=== PATIENT | female | born 1985 | race Caucasian/White ===

== ENCOUNTER 2022-10-25 12:36 | Emergency (ER) | payer MEDICAID ==
[2022-10-25 12:45] VITALS: BP 119/80
--- NOTE | 2022-10-25 13:09 | ED Physician Documentation ---
PD HPI UPPER EXT INJURY - Stated complaint Stated Complaint: RT ELBOW PX - Chief complaint Chief Complaint: Ext Problem - History obtained from History obtained from: Patient - History of Present Illness Location: Right, Elbow - Additonal information Additional information: 37-year-old female presents with right lateral elbow pain over the course of last week or so. She denies any acute injury. Pain is very focal left lateral epicondyle. No erythema or swelling. It is worse when she attempts to lift things which she does frequently at her job at [employer]. She has been lifting bags of mulch frequently over the course of the last week which is exacerbated her pain. She has not attempted any treatment including compression, ice, NSAIDs. PD PAST MEDICAL HISTORY - Present Medications Home Medications: Ambulatory Orders Medication Instructions Recorded Confirmed No Known Home Medications 10/25/22 10/25/22 - Allergies Allergies/Adverse Reactions: Allergies Allergy/AdvReac Type Severity Reaction Status Date / Time No Known Drug Allergies Allergy Verified 10/25/22 12:42 PD ED PE NORMAL - Vitals Vital signs reviewed: Yes - General General: Alert and oriented X 3, No acute distress, Well developed/nourished - Extremities Extremities: No deformity, Normal ROM s pain, Other (There is tenderness of the right lateral epicondyle, no erythema or swelling. No other extremity injuries. She has Normal range of motion without pain except against resistance.) Results - Vitals Vitals: Vital Signs - 24 hr 10/25/22 12:40 Temperature 36.8 C Heart Rate 78 Respiratory 16 Rate Blood Pressure 119/80 O2 Saturation 97 Oxygen O2 Source Room air PD Medical Decision Making - ED course Complexity details: considered differential, d/w patient ED course: 37-year-old female presented with right lateral elbow pain as described in HPI. This is likely related to repetitive motion lifting which she has been doing her job recently. She very likely has a lateral epicondylitis. Recommended supportive measures for the patient including cool compress, light compression, and ibuprofen. Encouraged the patient to rest if possible for the next week or so to allow the elbow to heal though advised that this can recur particularly with repetitive motion activity and if possible she could do alternative work at her workplace. Pt will fup w/ her PCP as needed. . Departure - Departure Disposition: 01 Home, Self Care Clinical Impression: Lateral epicondylitis of elbow Qualifiers: Laterality: right Qualified Code(s): M77.11 - Lateral epicondylitis, right elbow Condition: Good Instructions: ED Epicondylitis Lateral Elbow Comments: Your symptoms are consistent with an epicondylitis of the elbow. This is a common overuse injury when a person is frequently using the elbow for lifting or repetitive motion such as tennis, golf, hammering in construction or in your case, frequently lifting heavy bags and equipment. The treatment is largely supportive, I recommend light compression, taking ibuprofen for anti- inflammatory and icing the area frequently. It would be good if you could take light duty or refrain from lifting for the next 1 to 2 weeks to allow the area to rest. Forms: Activity restrictions
== END 2022-10-25 13:15 | disposition home or self-care (01) ==
LOC: ED 12:36
DX: M77.11 Lateral epicondylitis, right elbow (principal)
CPT/HCPCS: 99281; 99283

== ENCOUNTER 2023-04-26 11:29 | Emergency (ER) | payer OTHER, MEDICAID ==
[2023-04-26 11:55] VITALS: BP 120/44; O2SAT 97
[2023-04-26 12:25] LABS: HCG,QUALITATIVE BLOOD NEGATIVE
--- NOTE | 2023-04-26 13:13 | ED Physician Documentation ---
PD HPI LOWER EXT INJURY - Stated complaint Stated Complaint: LFT KNEE PX - Chief complaint Chief Complaint: Ext Problem - History obtained from History obtained from: Patient - History of Present Illness PD HPI LOW EXT INJURY LOCATION: Left, Knee Pain level max: 6 Pain level now: 5 Improved by: Rest Worsened by: Moving, Palpating Associated symptoms: Swelling. No: Weakness, Numbness, Tingling Contributing factors: No: Anticoagulated - Additional information Additional information: 38 year old female with pain to the L knee, medial aspect. worse since starting a new job at [employer]. Worse with movement, better with rest. She states that there is a slight possibility she could be . She does not believe that she has however. She states that she tried using a brace but is still having pain in the knee. She states that she is having some swelling. No skin changes. No numbness or tingling. No calf swelling. Patient does not recall any specific trauma. Review of Systems Constitutional: denies: Fever, Chills Nose: denies: Rhinorrhea / runny nose, Congestion GI: denies: Nausea, Vomiting, Diarrhea Skin: denies: Rash Musculoskeletal: denies: Neck pain, Back pain Neurologic: denies: Headache PD PAST MEDICAL HISTORY - Past Medical History Past Medical History: Yes Other Past Medical History: ovarina issues. - Past Surgical History Past Surgical History: No - Present Medications Home Medications: Ambulatory Orders Medication Instructions Recorded Confirmed No Known Home Medications 10/25/22 10/25/22 - Allergies Allergies/Adverse Reactions: Allergies Allergy/AdvReac Type Severity Reaction Status Date / Time No Known Drug Allergies Allergy Verified 04/26/23 11:45 - Social History Does the pt smoke?: No Smoking Status: Current some day smoker Does the pt drink ETOH?: Yes ETOH Use: Wine, Beer Does the pt have substance abuse?: No - Immunizations Immunizations are current?: Yes - POLST Patient has POLST: No PD ED PE NORMAL - Vitals Vital signs reviewed: Yes - General General: Alert and oriented X 3, No acute distress - HEENT HEENT: PERRL, Moist mucous membranes - Neck Neck: Supple, no meningeal sign - Derm Derm: Warm and dry - Extremities Extremities: No deformity, Normal ROM s pain, No calf tenderness / cord, Other (Left knee - ACL, MCL, PCL, LCL are intact. Mild tenderness along the medial as pect of the joint line and some pain with valgus stress on the knee.) - Neuro Neuro: Alert and oriented X 3 - Psych Psych: Normal mood, Normal affect Results - Vitals Vitals: Vital Signs - 24 hr 04/26/23 11:40 Temperature 36.6 C Heart Rate 86 Respiratory 16 Rate Blood Pressure 120/44 L O2 Saturation 97 Oxygen O2 Source Room air - Labs Labs: Laboratory Tests 04/26/23 04/26/23 11:55 13:08 Serum HCG, Qual NEGATIVE Urine HCG, Qual NEGATIVE - Rads (name of study) Left knee x-ray Relevant Findings:: Final report received, See rad report PD Medical Decision Making - ED course Complexity details: reviewed results, re-evaluated patient, considered differential, d/w patient ED course: No acute findings on the x-ray. Her exam is consistent with a knee strain. Placed in articulating knee brace for comfort. Ambulating without a limp. She can use Motrin or Tylenol as needed for pain at home. L&I paperwork completed. Recommend she follow-up with her PCP for further care. No evidence of joint effusion today. Patient counseled regarding signs and symptoms for which I believe and urgent re-evaluation would be necessary. Patient with good understanding of and agreement to plan and is comfortable going home at this time This document was made in part using voice recognition software. While efforts are made to proofread this document, sound alike and grammatical errors may occur. Departure - Departure Disposition: 01 Home, Self Care Clinical Impression: Strain of knee Qualifiers: Encounter type: initial encounter Laterality: right Qualified Code(s): S86.911A - Strain of unspecified muscle(s) and tendon(s) at lower leg level, right leg, initial encounter Condition: Good Instructions: ED Sprain Knee Follow-Up: Suraj Berry MD [Primary Care Provider] - Within 1 week Comments: Your x-ray does not show any acute abnormalities today. Please wear the brace as needed, this will help to support the knee. You should work on strengthening the knee as well, your doctor may want to refer you for physical therapy. Icing the knee after work should help as well. Please return if you worsen Forms: PCP List, Activity restrictions Discharge Date/Time: 04/26/23 15:04
[2023-04-26 13:33] LABS: HCG UR QUAL NEGATIVE
--- NOTE | 2023-04-26 13:46 | XRAY Report ---
PROCEDURE: Knee 4 View LT INDICATIONS: L knee pain TECHNIQUE: 4 views of the knee(s) were acquired. COMPARISON: None. FINDINGS: Bones: No fractures or dislocations. Mild medial femoral tibial compartment osteoarthritis is seen. No patella subluxation. No suspicious bony lesions. Soft tissues: No knee joint effusion. No suspicious soft tissue calcifications or masses. IMPRESSION: No acute bony abnormality. Mild medial femoral tibial compartment osteoarthritis. No joint effusion. Reviewed by: Isaac Law MD on 04/26/2023 1:44 PM PST Approved by: Isaac Law MD on 04/26/2023 1:44 PM PST Station ID: [id number]
== END 2023-04-26 15:04 | disposition home or self-care (01) ==
LOC: ED 11:29
DX: S86.911A Strain of unspecified muscle(s) and tendon(s) at lower leg level, right leg, initial encounter (principal); X58.XXXA Exposure to other specified factors, initial encounter; Y93.89 Activity, other specified; Y92.812 Truck as the place of occurrence of the external cause; Y99.0 Civilian activity done for income or pay; F17.200 Nicotine dependence, unspecified, uncomplicated
CPT/HCPCS: 1040M; 36415; 73564; 81025; 84703; 99283; 99284